=== PATIENT | male | born 1950 | race Hispanic/Latino ===

== ENCOUNTER 2018-11-09 05:38 | Emergency (ER) | payer BC ==
[2018-11-09 07:30] VITALS: RESP 20; TEMP 97.5; O2SAT 97
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
[2018-11-09 08:31] VITALS: BP 141/89; PULSE 100
== END 2018-11-09 08:36 | disposition home or self-care (01) ==
LOC: C.ER 05:38
DX: F10.129 Alcohol abuse with intoxication, unspecified (principal)